=== PATIENT | male | born 1985 | race Caucasian/White ===

== ENCOUNTER 2019-04-22 12:23 | Emergency (ER) | payer SELFPAY ==
[2019-04-22 12:41] VITALS: BP 140/95
--- NOTE | 2019-04-22 13:19 | EDM.PDOC ---
ED HPI GENERAL MEDICAL PROBLEM - General Chief Complaint: Upper Extremity Injury/Pain Stated Complaint: ARM PAIN Time Seen by Provider: 04/22/19 12:44 Source of Information: Reports: Patient History Limitations: Reports: No Limitations - History of Present Illness INITIAL COMMENTS - FREE TEXT/NARRATIVE: The patient presents with left arm tingling and numbness. He says this has been going on for the past few months. He says it is worse when he is driving. He got off work this morning and he was doing some paper work when it started. He denies any weakness to his arm and no injury. He has no systemic symptoms such as fever, chills, cough, chest pain or shortness of pain. He has no neck pain or headache. The tingling only affects the left 5th and 4th digits. Onset: Gradual Duration: Week(s): Location: Reports: Upper Extremity, Left Quality: Reports: Other (Tingling) Improves with: Reports: None Worsens with: Reports: None Associated Symptoms: Reports: No Other Symptoms Left Lower Arm Pain Score (Numeric/FACES): 6 - Related Data Allergies Allergy/AdvReac Type Severity Reaction Status Date / Time No Known Allergies Allergy Verified 04/22/19 12:33 Home Meds: Home Meds Buprenorphine HCl/Naloxone HCl [Suboxone 4 mg-1 mg Sl Film] 0.5 dose SL DAILY [History] Past Medical History - Past Health History Medical/Surgical History: Denies Medical/Surgical History Dermatologic History: Reports: Psoriasis - Infectious Disease History Infectious Disease History: Reports: Chicken Pox Social & Family History - Tobacco Use Smoking Status *Q: Never Smoker - Caffeine Use Caffeine Use: Reports: Coffee - Alcohol Use Days Per Week of Alcohol Use: 3 Number of Drinks Per Day: 7 Total Drinks Per Week: 21 - Recreational Drug Use Recreational Drug Use: No Other Recreational Drug Type: Gan of opioid abuse Review of Systems - Review of Systems Review Of Systems: See Below Constitutional: Reports: No Symptoms Eyes: Reports: No Symptoms Ears: Reports: No Symptoms Nose: Reports: No Symptoms Mouth/Throat: Reports: No Symptoms Respiratory: Reports: No Symptoms Cardiovascular: Reports: No Symptoms GI/Abdominal: Reports: No Symptoms Musculoskeletal: Reports: Other (Left arm tingling) ED EXAM, GENERAL - Physical Exam Exam: See Below Exam Limited By: No Limitations General Appearance: Alert, No Apparent Distress Ears: Normal External Exam Nose: Normal Inspection Head: Atraumatic, Normocephalic Neck: Normal Inspection Respiratory/Chest: No Respiratory Distress, Lungs Clear, Normal Breath Sounds Cardiovascular: Regular Rate, Rhythm, No Edema, No Murmur GI/Abdominal: Soft, Non-Tender, No Organomegaly, No Mass Extremities: Other (No tingling, pain or numbness to the left arm. Good sensation and pulses distally.) Course - Vital Signs Last Recorded V/S: Last Vital Signs Temp 97.9 F 04/22/19 12:36 Pulse 77 04/22/19 12:36 Resp 20 04/22/19 12:36 BP 140/95 H 04/22/19 12:36 Pulse Ox 100 04/22/19 12:36 Departure - Departure Time of Disposition: 13:35 Disposition: Home, Self-Care 01 Condition: Good Clinical Impression: Neuropathy of left ulnar nerve at wrist - Discharge Information *PRESCRIPTION DRUG MONITORING PROGRAM REVIEWED*: No *COPY OF PRESCRIPTION DRUG MONITORING REPORT IN PATIENT JUAN: No Referrals: PCP,None [Primary Care Provider] - Kirk Rodgers MD [Physician] - 1 Week Forms: ED Department Discharge Additional Instructions: Try to use an elbow pad to protect the nerve. Follow up with Dr Rodgers. Please return if you are worse.
== END 2019-04-22 13:41 | disposition home or self-care (01) ==
LOC: JD.ED 12:23
DX: G56.22 Lesion of ulnar nerve, left upper limb (principal); Z79.899 Other long term (current) drug therapy
CPT/HCPCS: 99283

== ENCOUNTER 2020-06-12 21:11 | Emergency (ER) | payer SELFPAY ==
[2020-06-12 21:26] VITALS: BP 141/89; PULSE 62
[2020-06-12] MEDS ORDERED: Fluorescein 1 MG Ophth Strip EYELF ONE (21:28)
[2020-06-12] MEDS ORDERED: Proparacaine 0.5% Ophth Soln 15 ML Bottle EYELF ONE (21:29)
[2020-06-12] MEDS ORDERED: Erythromycin Base 0.5% Ophth Oint 1 GM Tube EYELF ONE (21:58)
--- NOTE | 2020-06-12 22:00 | EDM.PDOC ---
ED HPI GENERAL MEDICAL PROBLEM - General Chief Complaint: ENT Problem Stated Complaint: SOMETHING IN LEFT EYE Time Seen by Provider: 06/12/20 21:23 Source of Information: Reports: Patient History Limitations: Reports: No Limitations - History of Present Illness INITIAL COMMENTS - FREE TEXT/NARRATIVE: Patient is a 34-year-old male who presents to the emergency department with a sensation of a foreign body in his left eye. 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 He was wearing goggles, however he took them off at the end. States he has had a sensation of something in his eye throughout the day. He denies any vision changes. Eye has been red and watery. Left Eye Pain Score (Numeric/FACES): 2 - Related Data Allergies Allergy/AdvReac Type Severity Reaction Status Date / Time No Known Allergies Allergy Verified 06/12/20 21:27 Home Meds: Home Meds Buprenorphine HCl/Naloxone HCl [Suboxone 4 mg-1 mg Sl Film] 0.5 dose SL DAILY 04/22/19 [History] Past Medical History - Past Health History Medical/Surgical History: Denies Medical/Surgical History Psychiatric History: Reports: Addiction Dermatologic History: Reports: Psoriasis - Infectious Disease History Infectious Disease History: Reports: Chicken Pox Social & Family History - Tobacco Use Smoking Status *Q: Never Smoker - Caffeine Use Caffeine Use: Reports: None - Recreational Drug Use Recreational Drug Use: No ED ROS ENT - Review of Systems Review Of Systems: Comprehensive ROS is negative, except as noted in HPI. ED EXAM, ENT - Physical Exam Exam: See Below General Appearance: Alert, WD/WN, No Apparent Distress Eye Exam: Left Eye: Conjunctival Injection, Corneal Abrasion (7:00 and 10 o'clock position.), Bilateral Eye: PERRL Respiratory/Chest: No Respiratory Distress, Lungs Clear, Normal Breath Sounds, No Accessory Muscle Use, Chest Non-Tender Cardiovascular: Normal Peripheral Pulses, Regular Rate, Rhythm, No Edema, No Gallop, No JVD, No Murmur, No Rub Neurological: Alert, Oriented, CN II-XII Intact, Normal Cognition, Normal Gait, Normal Reflexes, No Motor/Sensory Deficits Psychiatric: Normal Affect, Normal Mood Skin: Warm, Dry, Intact, Normal Color, No Rash Course - Vital Signs Last Recorded V/S: Last Vital Signs Temp 97.5 F 06/12/20 21:23 Pulse 62 06/12/20 21:23 Resp 18 06/12/20 21:23 BP 141/89 H 06/12/20 21:23 Pulse Ox 100 06/12/20 21:23 - Orders/Labs/Meds Meds: Medications Discontinued Medications Generic Name Dose Route Start Last Admin Trade Name Ellie PRN Reason Stop Dose Admin Erythromycin 1 gm 06/12/20 21:58 06/12/20 22:04 Erythromycin 0.5% Ophth Oint EYELF 06/12/20 21:59 1 gm ONETIME ONE Administration Fluorescein Sodium 1 mg 06/12/20 21:28 06/12/20 22:04 Ful-Michaelle EYELF 06/12/20 21:29 1 mg ONETIME ONE Administration Proparacaine HCl 1 ml 06/12/20 21:29 06/12/20 22:04 Proparacaine 0.5% Ophth Soln EYELF 06/12/20 21:30 1 ml ONETIME ONE Administration - Re-Assessments/Exams Free Text/Narrative Re-Assessment/Exam: 06/12/20 21:56 Proparacaine and fluorescein instilled into the left eye. No corneal abrasions were visible with the Rodas lamp. No obvious foreign bodies. With the assistance of Dr. Pineda, the slit lamp was used. No foreign bodies were visualized, however patient does have a number of small corneal abrasions in a spray pattern at the 10:00 and 7 o'clock position of the left eye. No foreign bodies were visualized by Dr. Pineda either. We will apply erythromycin ointment into the eye. Patient will be sent home with the tube of ointment to instill as needed. Recommend that if he is still having discomfort by Monday, that he follow-up with an eye doctor. Discharge instructions as documented. Departure - Departure Time of Disposition: 21:59 Disposition: Home, Self-Care 01 Condition: Good Clinical Impression: Corneal abrasion Qualifiers: Encounter type: initial encounter Laterality: left Qualified Code(s): S05.02XA - Injury of conjunctiva and corneal abrasion without foreign body, left eye, initial encounter - Discharge Information *PRESCRIPTION DRUG MONITORING PROGRAM REVIEWED*: No *COPY OF PRESCRIPTION DRUG MONITORING REPORT IN PATIENT JUAN: No Instructions: Corneal Abrasion, [id number] Referrals: PCP,None [Primary Care Provider] - Forms: ED Department Discharge Additional Instructions: You were seen in the emergency department today for sensation of a foreign body in the left eye. On exam, you do have a number of small abrasions to your cornea, but no obvious foreign body. You have been provided a tube of erythromycin ointment. You may use this throughout the day as needed to lubricate the eye. This will also help soothe the cornea. As discussed, corneal abrasions usually heal fairly rapidly. If you are still having discomfort to your eye by Monday, would recommend that you follow-up with an special crimes investigator. Return to the ER as needed. Sepsis Event Note (ED) - Evaluation Sepsis Screening Result: No Definite Risk
== END 2020-06-12 22:07 | disposition home or self-care (01) ==
LOC: JD.ED 21:11
DX: S05.02XA Injury of conjunctiva and corneal abrasion without foreign body, left eye, initial encounter (principal); X58.XXXA Exposure to other specified factors, initial encounter
CPT/HCPCS: 99283; A9270

== ENCOUNTER 2021-01-20 13:31 | Emergency (ER) | payer SELFPAY ==
[2021-01-20] MEDS ORDERED: HYDROmorphone 1 MG/ML Syringe IM ONE (13:49)
[2021-01-20] MEDS ORDERED: Promethazine 25 MG/ML SDV IM ONE (13:50)
[2021-01-20] MEDS ORDERED: Promethazine 25 MG/ML SDV ONE (13:59)
[2021-01-20] MEDS ORDERED: HYDROmorphone 1 MG/ML Syringe ONE (13:59)
--- NOTE | 2021-01-20 15:12 | EDM.PDOC ---
ED HPI GENERAL MEDICAL PROBLEM - General Chief Complaint: ENT Problem Stated Complaint: DENTAL COMPLAINT Time Seen by Provider: 01/20/21 13:49 Source of Information: Reports: Patient History Limitations: Reports: No Limitations - History of Present Illness INITIAL COMMENTS - FREE TEXT/NARRATIVE: 35-year-old male presents to the ED in excruciating pain coming from right upper first and second molar teeth. The second molar is partially decayed with suspect deep dental carry through the dentin. States has been gradually getting worse over the last 3 days. Today it has become unrelenting. It is constant throbbing pounding and occasionally sharp and stabbing. Everything that he is tried at home has failed. He has never had pain like this in his life. Patient admits that he is currently on Suboxone for previous narcotic addiction. His brought him to the hospital therefore he is not driving. No recent dental surgery performed on these teeth. Onset: Gradual Onset Date: 01/18/21 Duration: Day(s):, Getting Worse Location: Reports: Face (Dental pain right upper molars) Quality: Reports: Ache, Throbbing, Other (Dating) Severity: Severe (occasional sharp and stabbing and lancinating) Improves with: Reports: None (10 out of 10 ) Worsens with: Reports: None Context: Denies: Activity, Exercise, Lifting, Sick Contact, Trauma, Other Associated Symptoms: Reports: Loss of Appetite, Weakness. 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) Right Upper Tooth/Teeth Pain Score (Numeric/FACES): 10 - Related Data Allergies Allergy/AdvReac Type Severity Reaction Status Date / Time No Known Allergies Allergy Verified 01/20/21 13:44 Home Meds: Home Meds Buprenorphine HCl/Naloxone HCl [Suboxone 4 mg-1 mg Sl Film] 0.5 dose SL BID 04/22/19 [History] Amoxicillin/Potassium Clav [Augmentin 500-125 Tablet] 1 each PO BID #20 tablet 01/20/21 [Rx] oxyCODONE HCl/Acetaminophen [Percocet 10-325 mg Tablet] 1 each PO Q4H PRN #12 tablet 01/20/21 [Rx] Past Medical History - Past Health History Medical/Surgical History: Denies Medical/Surgical History Psychiatric History: Reports: Addiction Dermatologic History: Reports: Psoriasis - Infectious Disease History Infectious Disease History: Reports: Chicken Pox Social & Family History - Tobacco Use Tobacco Use Status *Q: Never Tobacco User - Caffeine Use Caffeine Use: Reports: None - Recreational Drug Use Recreational Drug Use: No - Living Situation & Occupation Living situation: Reports: Occupation: Employed ED ROS ENT - Review of Systems Review Of Systems: See Below Constitutional: Reports: Malaise, Weakness, Fatigue, Decreased Appetite (To disrupted sleep.). Denies: Fever, Chills HEENT: Reports: Dental Pain (Dental pain coming from right upper second and first molar teeth.) Respiratory: Reports: No Symptoms Cardiovascular: Reports: No Symptoms Endocrine: Reports: No Symptoms GI/Abdominal: Reports: No Symptoms : Reports: No Symptoms Musculoskeletal: Reports: No Symptoms Skin: Reports: No Symptoms Neurological: Reports: No Symptoms Psychiatric: Reports: No Symptoms Hematologic/Lymphatic: Reports: No Symptoms Immunologic: Reports: No Symptoms ED EXAM, ENT - Physical Exam Exam: See Below Exam Limited By: No Limitations General Appearance: Alert, WD/WN, Severe Distress, Other (Patient is pacing the floor back to her room like a cage [place] due to the severity of the pain. Vital signs show temperature 36.2 degrees with a heart rate of 101. Respiratory is 18 with O2 sats of 90% room air.) Eye Exam: Bilateral Eye: Normal Inspection (No scleral icterus or blepharal pallor.), PERRL Ears: Normal TMs Mouth/Throat: Dental Pain (Dental carry of present right upper second molar tooth. Mild inflammation of the surrounding gingiva without an abscess evident.), Dental Tenderness. No: Dental Abcess, Dental Trauma, Drooling, Dry Mucous Membrane Head: Atraumatic, Normocephalic Neck: Normal Inspection, Supple, Non-Tender, Full Range of Motion. No: Lymphadenopathy (L), Lymphadenopathy (R) Respiratory/Chest: No Respiratory Distress, Lungs Clear, Normal Breath Sounds, No Accessory Muscle Use Cardiovascular: Normal Peripheral Pulses, Regular Rate, Rhythm, No Edema, No Gallop, No Murmur, No Rub GI/Abdominal: Normal Bowel Sounds, Soft, Non-Tender, No Organomegaly, Pelvis Stable Course - Vital Signs Last Recorded V/S: Last Vital Signs Temp 36.2 C 03/10/21 13:40 Pulse 101 H 01/20/21 13:40 Resp 18 01/20/21 13:40 BP Pulse Ox 98 01/20/21 13:40 - Radiology Interpretation Free Text/Narrative:: 35-year-old male presents to the ED with severe dental pain coming from the right upper first and second molar teeth. There is dental caries involving the right second molar tooth. Plan he will be given Dilaudid 1 mg IM with Phenergan 25 mg IM for pain and nausea relief. He was placed on Augmentin 500/125 mg tablet twice daily for the next 10 days to clear up dental infection. Advised to follow-up with dentist as soon as able. Discharged on Percocet 10 325 mg 1 tablet every 4-6 hours necessary for pain relief x12 tablets Departure - Departure Time of Disposition: 13:56 Disposition: Home, Self-Care 01 Condition: Fair Clinical Impression: Dental abscess - Discharge Information *PRESCRIPTION DRUG MONITORING PROGRAM REVIEWED*: Not Applicable *COPY OF PRESCRIPTION DRUG MONITORING REPORT IN PATIENT JUAN: Not Applicable Prescriptions: Amoxicillin/Potassium Clav [Augmentin 500-125 Tablet] 1 each PO BID #20 tablet oxyCODONE HCl/Acetaminophen [Percocet 10-325 mg Tablet] 1 each PO Q4H PRN #12 tablet PRN Reason: Dental infection Instructions: Dental Abscess Referrals: PCP,None [Primary Care Provider] - Forms: ED Department Discharge Additional Instructions: Evaluation in the emergency room today in regards to severe dental pain coming from the right upper primarily second molar tooth. Dental caries evident with suspect infection around the nerve causing exquisite pain. You were treated with an intramuscular injection of Dilaudid and Phenergan for relief of pain and nausea. Currently you are on Suboxone which sometimes limits the ability of pain medication effect. You may stop your Suboxone for the next few days while you need pain medication and resume it afterwards. Usually the infection will come under control within 48 to 72 hours with and antibiotics and the pain will did diminish substantially. Continue to use Motrin 6 5 mg every 6 hours to reduce pain and inflammation as well. Percocet tabs 10/325 mg 1 tablet every 4 hours as needed for pain relief. Antibiotic is to be Augmentin 500/125 mg tablet twice daily for the next 10 days to bring dental infection under control. Suggest follow-up with dentist as soon as able for x-rays and see if a root canal is required on this tooth. Sepsis Event Note (ED) - Evaluation Sepsis Screening Result: No Definite Risk - Focused Exam Vital Signs: Vital Signs Temp Pulse Resp Pulse Ox 01/20/21 13:40 36.2 C 101 H 18 98
[2021-01-20 15:13] VITALS: PULSE 101
== END 2021-01-20 14:11 | disposition home or self-care (01) ==
LOC: JD.ED 13:31
DX: K04.7 Periapical abscess without sinus (principal); K02.9 Dental caries, unspecified
CPT/HCPCS: 96372; 99282; J1170; J2550; 99283

== ENCOUNTER 2021-06-10 08:42 | Emergency (ER) | payer SELFPAY ==
[2021-06-10 08:54] VITALS: BP 130/74; PULSE 62
[2021-06-10] MEDS ORDERED: Lidocaine 1% 10 ML MDV INJECT ONE (08:55)
[2021-06-10] MEDS ORDERED: Diphtheria,Pertussis(Acell),Tetanus Vaccine 0.5 ML Syringe IM ONE (08:55)
--- NOTE | 2021-06-10 09:02 | EDM.PDOC ---
ED HPI GENERAL MEDICAL PROBLEM - General Chief Complaint: Laceration Stated Complaint: LEFT ARM LAC Time Seen by Provider: 06/10/21 08:54 Source of Information: Reports: Patient History Limitations: Reports: No Limitations - History of Present Illness INITIAL COMMENTS - FREE TEXT/NARRATIVE: 35-year-old male presents to the ED with an acute laceration mid volar left forearm. He reports this occurred when he was using a grinding wheel and it skipped and accidentally struck him in the mid forearm. This occurred within the last half hour prior to coming to the emergency department. He believes his tetanus toxoid is not up-to-date. Last dose was probably 15 years ago. No other injuries apparent. Onset: Today, Sudden Onset Date: 06/10/21 Onset Time: 08:10 Duration: Minutes: Location: Reports: Upper Extremity, Left (Laceration mid volar left forearm) Quality: Reports: Ache Severity: Mild Improves with: Reports: Rest Worsens with: Reports: Other Context: Reports: Trauma (Grinding wheel accident). 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 Pain Score (Numeric/FACES): 5 - Related Data Allergies Allergy/AdvReac Type Severity Reaction Status Date / Time No Known Allergies Allergy Verified 06/10/21 08:54 Home Meds: Home Meds Buprenorphine HCl/Naloxone HCl [Suboxone 4 mg-1 mg Sl Film] 0.5 dose SL BID 04/22/19 [History] Amoxicillin/Potassium Clav [Augmentin 500-125 Tablet] 1 each PO BID #20 tablet 01/20/21 [Rx] oxyCODONE HCl/Acetaminophen [Percocet 10-325 mg Tablet] 1 each PO Q4H PRN #12 tablet 01/20/21 [Rx] Past Medical History - Past Health History Medical/Surgical History: Denies Medical/Surgical History Psychiatric History: Reports: Addiction Dermatologic History: Reports: Psoriasis - Infectious Disease History Infectious Disease History: Reports: Chicken Pox Social & Family History - Caffeine Use Caffeine Use: Reports: None - Living Situation & Occupation Living situation: Reports: Occupation: Employed ED ROS GENERAL - Review of Systems Review Of Systems: See Below Constitutional: Reports: No Symptoms HEENT: Reports: No Symptoms Respiratory: Reports: No Symptoms Cardiovascular: Reports: No Symptoms Endocrine: Reports: No Symptoms GI/Abdominal: Reports: No Symptoms : Reports: No Symptoms Musculoskeletal: Reports: No Symptoms Skin: Reports: No Symptoms Neurological: Reports: No Symptoms Psychiatric: Reports: No Symptoms Hematologic/Lymphatic: Reports: No Symptoms Immunologic: Reports: No Symptoms ED EXAM, SKIN/RASH Exam: See Below Exam Limited By: No Limitations General Appearance: Alert, WD/WN, No Apparent Distress, Other (Temperature is 36.4 degrees. Heart rate 62 and sinus respiratory is 20 with O2 sats of 99% room air BP 12/12/1973) Eye Exam: Bilateral Eye: Normal Inspection Extremities: Other (Examination limited to the left forearm. Patient is a 2.5 c m laceration horizontally across the mid left forearm. Adipose tissue exposed. Muscles and ligaments intact wound is fairly clean.) Neurological: Alert, Oriented, CN II-XII Intact, Normal Cognition Psychiatric: Normal Affect, Normal Mood Skin: Warm, Dry, Normal Color, No Rash ED SKIN PROCEDURES - Laceration/Wound Repair Left Middle Mid-Anterior Arm Appearance: Subcutaneous, Linear, Mildly Contaminated, Other (2.5 cm horizontal laceration mid volar left forearm) Distal NVT: Neuro & Vascular Intact Local Anesthesia - Lidocaine (Xylocaine): 1% Plain Local Anesthetic Volume: 3cc Skin Prep: Chlorhexidine (Hibiciens), Saline Closed with: Sutures Lac/Wound length In cm: 2.5 Suture Size: 4-0 Suture Type: Nylon, Interrupted, Simple Course - Vital Signs Last Recorded V/S: Last Vital Signs Temp 36.4 C 06/10/21 08:52 Pulse 62 06/10/21 08:52 Resp 20 06/10/21 08:52 BP 130/74 06/10/21 08:52 Pulse Ox 99 06/10/21 08:52 - Orders/Labs/Meds Orders: Active Orders 24 hr Category Date Time Status Vaccines to be Administered [RC] PER UNIT ROUTINE Care 06/10/21 08:56 Active Meds: Medications Discontinued Medications Generic Name Dose Route Start Last Admin Trade Name Freq PRN Reason Stop Dose Admin Diphtheria/Tetanus/Acell Pertussis 0.5 ml 06/10/21 08:55 Diphtheria,Pertussis(Acell),Tetanus Vaccine 0.5 Ml Syringe IM 06/10/21 08:56 .ONCE ONE Lidocaine HCl 10 ml 06/10/21 08:55 Lidocaine 1% 10 Ml Mdv INJECT 06/10/21 08:56 ONETIME ONE - Radiology Interpretation Free Text/Narrative:: 35-year-old male presents to the ED for evaluation of a 2.5 cm laceration volar aspect of his left mid forearm. This occurred from a grinding wheel that skipped across the material he was working on and struck him in the mid left forearm resulting in a fourth full-thickness laceration down to the adipose tissue. No muscle involved. Wound will be irrigated and cleansed. It will then be sutured under local anesthetic to provide wound closure. Tetanus diphtheria pertussis vaccine to be updated. - Re-Assessments/Exams Free Text/Narrative Re-Assessment/Exam: 06/10/21 09:15 2.5 cm laceration mid volar left forearm cleansed and sutured under local anesthetic times 5 sutures. Sutures need will need to be removed in 10 days time Departure - Departure Time of Disposition: 09:11 Disposition: Home, Self-Care 01 Condition: Fair Clinical Impression: Laceration of forearm without complication Qualifiers: Encounter type: initial encounter Laterality: left Qualified Code(s): S51.812A - Laceration without foreign body of left forearm, initial encounter - Discharge Information *PRESCRIPTION DRUG MONITORING PROGRAM REVIEWED*: Not Applicable *COPY OF PRESCRIPTION DRUG MONITORING REPORT IN PATIENT JUAN: Not Applicable Instructions: Laceration Care, Adult Referrals: PCP,None [Primary Care Provider] - Forms: ED Department Discharge Additional Instructions: Evaluation in the emergency room today in regards to a 2.5 cm horizontal laceration mid left volar left forearm that occurred in the workplace this morning. Wound was cleansed and then sutured under local anesthetic times 5 sutures. Treatment at home is to daily cleanse the wound with soap and water. Showering is okay. Then apply topical antibiotic such as bacitracin or Polysporin once daily and cover with a bandage to keep clean. Sutures will need to be removed in 10 days time. Follow-up with medical care if any signs of infection develop such as increased redness, swelling or obvious pus. This rarely occurs if topical antibiotic is placed over the sutures on a daily basis. Motrin 600mg every 6 hours as needed for pain. Your tetanus diphtheria and pertussis vaccine was updated today and is good for the next 10 years. Sepsis Event Note (ED) - Evaluation Sepsis Screening Result: No Definite Risk - Focused Exam Vital Signs: Vital Signs Temp Pulse Resp BP Pulse Ox 06/10/21 08:52 36.4 C 62 20 130/74 99 - My Orders Last 24 Hours: My Active Orders 06/10/21 08:56 Vaccines to be Administered [RC] PER UNIT ROUTINE - Assessment/Plan Last 24 Hours: My Active Orders 06/10/21 08:56 Vaccines to be Administered [RC] PER UNIT ROUTINE
== END 2021-06-10 09:35 | disposition home or self-care (01) ==
LOC: JD.ED 08:42
DX: S51.812A Laceration without foreign body of left forearm, initial encounter (principal); Z23 Encounter for immunization; W22.8XXA Striking against or struck by other objects, initial encounter
CPT/HCPCS: 12001; 90471; 90715; 99282; 99282-25